=== PATIENT | male | born 2000 | race Two or more races ===

== ENCOUNTER 2018-05-17 20:25 | Emergency (ER) | payer MEDICAID, OTHER ==
[~2018-05-17] VITALS: Ht 165.1 cm; Wt 50.3 kg
[2018-05-17 20:50] VITALS: BP 122/78
[2018-05-17] MEDS ORDERED: IBUPROFEN600 MG ORAL (21:33)
--- NOTE | 2018-05-17 21:34 | Emergency Room Report ---
History of Present Illness General Chief Complaint: Upper Extremity Injury Source: Patient, Family Member Present Illness HPI Is a 17-year-old male with no past history. He presents with bilateral shoulder pain is been ongoing for almost a week. No trauma. Worse with movement. Worse with coughing and sneezing. No fever or chills. Hasn't take anything but Advil yesterday. No fever or chills. No repetitive motion. Pain is 7 out of 10. Allergies: Coded Allergies: CIPROFLOXACIN (Verified Allergy, Unknown, 05/17/18) Patient History Past Medical History: none, see triage record, old chart reviewed Past Surgical History: none Pertinent Family History: none Social History: Denies: smoking Immunizations: other Reviewed Nursing Documentation: PMH: Agreed; PSxH: Agreed Nursing Documentation-PMH Hx Asthma: Yes Review of Systems Eye: Denies: eye pain, blurred vision ENT: Denies: ear pain, nose congestion, throat swelling Respiratory: Denies: cough, shortness of breath Cardiovascular: Denies: chest pain, palpitations Gastrointestinal: Denies: abdominal pain, diarrhea, nausea, vomiting Musculoskeletal: Reports: joint pain; Denies: back pain Skin: Denies: rash Neurological: Denies: headache, numbness Endocrine: Denies: increased thirst, increased urine Hematologic/Lymphatic: Denies: easy bruising All Other Systems: negative except mentioned in HPI Physical Exam Vital Signs Date Time Temp Pulse Resp B/P (MAP) Pulse Ox O2 Delivery O2 Flow Rate FiO2 05/17/18 20:44 98.5 79 18 122/78 98 Room Air 98.4 vitals normal Sp02 EP Interpretation: reviewed, normal General Appearance: well appearing, no apparent distress, alert Head: normocephalic, atraumatic Eyes: bilateral eye PERRL, bilateral eye EOMI ENT: hearing grossly normal, normal pharynx Neck: full range of motion, supple, no meningismus Respiratory: chest non-tender, lungs clear, normal breath sounds Cardiovascular #1: regular rate, rhythm, no murmur Gastrointestinal: normal bowel sounds, non tender, no mass, no organomegaly, no bruit, non-distended Musculoskeletal: back normal, gait/station normal, normal range of motion Psychiatric: mood/affect normal Skin: warm/dry Medical Decision Making Diagnostic Impression: Primary Impression: Arthralgia of shoulder region Qualified Codes: M25.519 - Pain in unspecified shoulder ER Course Patient with bilateral shoulder pain. No evidence of septic joint. No fracture dislocation. He looks well. No evidence of any in infection. Doubt is gout bilaterally. We'll discharge home with anti-inflammatory. Chest X-Ray Diagnostic Results Chest X-Ray Diagnostic Results : Chest X-Ray Ordered: Yes # of Views/Limited/Complete: 1 View Indication: Chest Pain EP Interpretation: Yes Interpretation: no consolidation, no effusion, no pneumothorax, no acute cardiopulmonary disease Impression: No acute disease Electronically Signed by: Abdiaziz Plummer MD Last Vital Signs Date Time Temp Pulse Resp B/P (MAP) Pulse Ox O2 Delivery O2 Flow Rate FiO2 05/17/18 20:44 98.5 79 18 122/78 98 Room Air 98.4 Status: improved Disposition: HOME, SELF-CARE Condition: Stable Scripts Ibuprofen* (MOTRIN*) 600 Mg Tablet 600 MG ORAL THREE TIMES A DAY, #30 TAB 0 Refills Prov: ABDIAZIZ PLUMMER M.D. 05/17/18 Referrals: [facility] (PCP) Additional Instructions: Follow-up with your doctor in 7 days. Return if symptom worsen. ABDIAZIZ PLUMMER M.D. May 17, 2018 21:34
[2018-05-17 21:44] VITALS: BP 122/78
--- NOTE | 2018-05-17 21:57 | Diagnostic Imaging Report ---
EXAM: XR Chest, 1 View CLINICAL HISTORY: PAIN TECHNIQUE: Frontal view of the chest. COMPARISON: No relevant prior studies available. FINDINGS: Lungs: Unremarkable. No consolidation. Pleural space: Unremarkable. No pneumothorax. Heart: Unremarkable. No cardiomegaly. Mediastinum: Unremarkable. Bones/joints: Unremarkable. IMPRESSION: Normal chest x-ray.
== END 2018-05-17 22:33 | disposition home or self-care (01) ==
LOC: EMR 21:07
DX: M25.512 Pain in left shoulder (principal); M25.511 Pain in right shoulder; J45.909 Unspecified asthma, uncomplicated; Z88.1 Allergy status to other antibiotic agents
CPT/HCPCS: 71045; 99283